=== PATIENT | male | born 1990 | race Caucasian/White ===

== ENCOUNTER 2021-02-13 06:56 | Emergency (ER) | payer MEDICAID ==
[~2021-02-13] VITALS: Ht 177.8 cm; Wt 96.4 kg
[2021-02-13] MEDS ORDERED: SODIUM CHLORIDE 0.9% 1,000 ML IV ONE (07:30)
[2021-02-13] MEDS ORDERED: LORazepam 2 MG/ML VIAL IVP ONE (07:30)
[2021-02-13] MEDS ORDERED: ACETAMINOPHEN 500 MG TABLET PO ONE (07:30)
[2021-02-13 09:04] VITALS: BP 142/91
== END 2021-02-13 09:07 | disposition home or self-care (01) ==
LOC: EMS 06:58
DX: F14.10 Cocaine abuse, uncomplicated (principal); F41.9 Anxiety disorder, unspecified
CPT/HCPCS: 93005; 96361; 96374; 99284; J2060; J7030

== ENCOUNTER 2021-03-14 05:11 | Emergency (ER) | payer MEDICAID ==
[~2021-03-14] VITALS: Ht 177.8 cm; Wt 100.0 kg
[2021-03-14] MEDS ORDERED: LORazepam 2 MG/ML VIAL IVP ONE (06:15)
[2021-03-14] MEDS ORDERED: SODIUM CHLORIDE 0.9% 1,000 ML IV ONE (06:15)
[2021-03-14 06:23] LABS: EOSINOPHILS % (AUTO) 1.3 % (1.0-6.0); LYMPHOCYTES # (AUTO) 1.4 K/uL (1.0-4.8); LYMPHOCYTES % (AUTO) 11.1 % (22.0-44.0); MEAN CORPUSCULAR HEMOGLOBIN 28.3 pg (26.0-34.0); MEAN CORPUSCULAR HGB CONC 34.1 G/dL (31.0-37.0); MEAN CORPUSCULAR VOLUME 83 fL (80-100); MONOCYTES # (AUTO) 0.7 K/uL (0.1-1.0); MONOCYTES % (AUTO) 5.6 % (2.0-9.0); NEUTROPHILS # (AUTO) 10.3 K/uL (1.8-7.7); PLATELET COUNT (AUTO) 355 K/uL (150-450); RED BLOOD CELL COUNT(AUTO) 5.67 MIL/uL (4.50-5.90); RED CELL DISTRIBUTION WIDTH 14.3 % (11.5-14.5)
[2021-03-14 06:29] LABS: ANION GAP 9 mmol/L (8-16); CALCIUM, TOTAL 8.9 mg/dL (8.8-10.5); CARBON DIOXIDE 31 mmol/L (22-29); CHLORIDE 102 mmol/L (98-107); CREATININE 0.95 mg/dL (0.60-1.30); GLOMERULAR FILTR. RATE CALC > 60 mL/min (>60); GLUCOSE,RANDOM 138 mg/dL (70-110); POTASSIUM 4.6 mmol/L (3.5-5.1); SODIUM SERUM 142 mmol/L (136-145); UREA NITROGEN, BLOOD 11 mg/dL (7-18)
[2021-03-14 06:35] LABS: ALANINE AMINOTRANSFERASE 70 U/L (12-78); ALBUMIN 4.2 g/dL (3.4-5.0); ALKALINE PHOSPHATASE 126 U/L (46-116); ASPARTATE AMINOTRANSFERASE 27 U/L (15-37); BILIRUBIN,TOTAL 0.3 mg/dL (0.1-1.0); PHOSPHORUS 3.4 mg/dL (2.5-4.9); TOTAL PROTEIN, SERUM 8.2 g/dL (6.4-8.2)
[2021-03-14 08:50] VITALS: BP 152/80
== END 2021-03-14 08:55 | disposition home or self-care (01) ==
LOC: EMS 05:12
DX: F14.90 Cocaine use, unspecified, uncomplicated (principal); R00.2 Palpitations
CPT/HCPCS: 36415; 80053; 83735; 84100; 84484; 85025; 93005; 96361; 96374; 99284; J2060; J7030

== ENCOUNTER 2021-06-28 13:12 | Emergency (ER) | payer MEDICAID, OTHER ==
[~2021-06-28] VITALS: Ht 177.8 cm; Wt 98.0 kg
[2021-06-28 13:24] VITALS: BP 142/101
== END 2021-06-28 14:32 | disposition left against medical advice (07) ==
LOC: EMS 13:12
DX: R00.2 Palpitations (principal); Z53.21 Procedure and treatment not carried out due to patient leaving prior to being seen by health care provider

== ENCOUNTER 2024-08-12 16:26 | Emergency (ER) | payer OTHER ==
[~2024-08-12] VITALS: Ht 177.8 cm; Wt 100.0 kg
[2024-08-12 16:29] VITALS: BP 154/95; PULSE 94; RESP 18; TEMP 98.4; O2SAT 98
== END 2024-08-12 17:35 | disposition left against medical advice (07) ==
LOC: EMS 16:26
DX: R06.02 Shortness of breath (principal); Z53.21 Procedure and treatment not carried out due to patient leaving prior to being seen by health care provider